=== PATIENT | female | born 1990 | race Caucasian/White ===

== ENCOUNTER 2018-03-11 21:56 | Emergency (ER) | payer MEDICAID ==
[~2018-03-11] VITALS: Ht 165.1 cm; Wt 79.4 kg
[2018-03-11 22:12] VITALS: Ht 165.1 cm; Wt 79.4 kg
[2018-03-11 22:47] VITALS: BP 124/68
== END 2018-03-11 22:47 | disposition home or self-care (01) ==
LOC: ED 21:56
DX: O99.511 Diseases of the respiratory system complicating pregnancy, first trimester (principal); J02.9 Acute pharyngitis, unspecified; J40 Bronchitis, not specified as acute or chronic; Z3A.01 Less than 8 weeks gestation of pregnancy